=== PATIENT | female | born 1980 | race Caucasian/White ===

== ENCOUNTER → 2017-09-27 | Outpatient (REF) ==
[2017-09-27 15:21] LABS: THYROID STIMULATING HORMONE 1.75 uIU/mL (0.465-4.680)
== END ==
LOC: ZLAB.WCH 14:32
PROVIDERS: Nurse Practitioner Family
DX: Z01.89 Encounter for other specified special examinations (principal)

== ENCOUNTER → 2017-10-03 | Outpatient (REF) | LOC: COL.CARD 14:44 | DX: Z01.818 Encounter for other preprocedural examination (principal) ==

== ENCOUNTER → 2017-12-11 | Outpatient (REF) | LOC: ZLAB.WCH 10:51 | DX: Z01.89 Encounter for other specified special examinations (principal) ==

== ENCOUNTER → 2018-05-10 | Outpatient (REF) | LOC: ZLAB.WCH 17:29 | DX: Z01.89 Encounter for other specified special examinations (principal) ==